=== PATIENT | female | born 1995 | race African-American/Black ===

== ENCOUNTER 2016-11-19 09:00 | Emergency (ER) | payer OTHER ==
[2016-11-19 09:23] VITALS: TEMP 97.5; BMI 21.4
--- NOTE | 2016-11-19 09:29 | PDOC ---
History of Present Illness <Amada Armando - Last Filed: 11/19/16 11:16> <Ok Torres - Last Filed: 11/19/16 11:35> - General History Source: Patient Exam Limitations: No Limitations - History of Present Illness Initial Comments: 11/19/16 10:10 The patient is a 21 year old female [id number], with no past medical history and is 13 weeks (LMP August 21), who presents to the ED with five days of worsening vaginal bleeding.The patient states that the bleeding started out light and became heavier as the days progressed. She states that she has been seeing heavy bright red blood with quarter sized clots. She denies any abdominal pain or cramping. On arrival to the ED, the patient was noted to be hypotensive. She denies any recent illness, fever, chills, nausea, vomiting, diarrhea, cough, SOB, chest pain, or urinary symptoms. She denies taking any medications. DIVINITY TEACHER: Bisi Mcintosh <Clarissa Ortega - Last Filed: 11/19/16 11:46> - General Chief Complaint: Vaginal Bleeding Stated Complaint: VAGINAL BLEEDING Time Seen by Provider: 11/19/16 09:25 Past History <Amada Armando - Last Filed: 11/19/16 11:16> - Past Medical History Other medical history: none - Psycho/Social/Smoking Cessation Hx Anxiety: No Suicidal Ideation: No Smoking History: Never smoked Have you smoked in the past 12 months: No Information on smoking cessation initiated: No Hx Alcohol Use: No Drug/Substance Use Hx: No Substance Use Type: None <Ok Torres - Last Filed: 11/19/16 11:35> <Clarissa Ortega - Last Filed: 11/19/16 11:46> - Past Medical History Allergies/Adverse Reactions: Allergies Allergy/AdvReac Type Severity Reaction Status Date / Time No Known Allergies Allergy Verified 11/19/16 09:10 Home Medications: Ambulatory Orders NK [No Known Home Medication] 11/19/16 Review of Systems - Review of Systems Able to Perform ROS?: Yes Comments:: 11/19/16 10:10 GENERAL/CONSTITUTIONAL: No fever or chills. No weakness. HEAD, EYES, EARS, NOSE AND THROAT: No change in vision. No ear pain or discharge. No sore throat. CARDIOVASCULAR: No chest pain or shortness of breath. RESPIRATORY: No cough, wheezing, or hemoptysis. GASTROINTESTINAL: No nausea, vomiting, diarrhea or constipation. GENITOURINARY: Present: vaginal bleeding with clots No dysuria, frequency, or change in urination. MUSCULOSKELETAL: No joint or muscle swelling or pain. No neck or back pain. SKIN: No rash NEUROLOGIC: No headache, vertigo, loss of consciousness, or change in strength/ sensation. ENDOCRINE: No increased thirst. No abnormal weight change. HEMATOLOGIC/LYMPHATIC: No anemia, easy bleeding, or history of blood clots. ALLERGIC/IMMUNOLOGIC: No hives or skin allergy. All Other Systems: Reviewed and Negative <Clarissa Ortega - Last Filed: 11/19/16 11:46> *Physical Exam - Vital Signs Last Vital Signs Temp Pulse Resp BP Pulse Ox 97.5 F L 81 18 107/68 100 11/19/16 09:23 11/19/16 10:19 11/19/16 10:19 11/19/16 10:19 11/19/16 10:19 <Amada Armando - Last Filed: 11/19/16 11:16> - Vital Signs Last Vital Signs Temp Pulse Resp BP Pulse Ox 97.5 F L 105 H 18 93/35 100 11/19/16 09:23 11/19/16 09:11 11/19/16 09:11 11/19/16 09:11 11/19/16 09:11 <Ok Torres - Last Filed: 11/19/16 11:35> - Vital Signs Last Vital Signs Temp Pulse Resp BP Pulse Ox 97.5 F L 105 H 18 93/35 100 11/19/16 09:23 11/19/16 09:11 11/19/16 09:11 11/19/16 09:11 11/19/16 09:11 - Physical Exam Comments: 11/19/16 10:17 GENERAL: Awake, alert, and fully oriented, in no acute distress HEAD: No signs of trauma EYES: PERRLA, EOMI, sclera anicteric, conjunctiva clear ENT: Auricles normal inspection, hearing grossly normal, nares patent, oropharynx clear without exudates. Moist mucosa NECK: Normal ROM, supple, no lymphadenopathy, JVD, or masses LUNGS: Breath sounds equal, clear to auscultation bilaterally. No wheezes, and no crackles HEART: Regular rate and rhythm, normal S1 and S2, no murmurs, rubs or gallops ABDOMEN: Soft, nontender, normoactive bowel sounds. No guarding, no rebound. No masses PELVIC: Large clot in vaginal vault, cervix closed, no adnexal fullness or tenderness, no pain with cervical motion EXTREMITIES: Normal range of motion, no edema. No clubbing or cyanosis. No cords, erythema, or tenderness NEUROLOGICAL: Cranial nerves II through XII grossly intact. Normal speech, normal gait SKIN: Warm, Dry, normal turgor, no rashes or lesions noted. <Clarissa Ortega - Last Filed: 11/19/16 11:46> ED Treatment Course - LABORATORY CBC & Chemistry Diagram: 11/19/16 09:42 11/19/16 09:42 - ADDITIONAL ORDERS Additional order review: Laboratory Results 11/19/16 11/19/16 09:42 09:20 Sodium 138 Potassium 3.5 Chloride 104 Carbon Dioxide 26 Anion Gap 8 BUN 6 L Creatinine 0.7 Creat Clearance w eGFR > 60 Random Glucose 145 H Calcium 8.6 Total Bilirubin 0.5 AST 16 ALT 17 Alkaline Phosphatase 53 Total Protein 7.1 Albumin 3.6 Blood Type AB POSITIVE Antibody Screen Negative 11/19/16 09:42 RBC 3.74 MCV 85.5 MCHC 33.2 RDW 14.3 MPV 7.6 Neutrophils % 80.2 Lymphocytes % 13.6 Monocytes % 4.9 Eosinophils % 1.0 Basophils % 0.3 <Amada Armando - Last Filed: 11/19/16 11:16> - LABORATORY CBC & Chemistry Diagram: 11/19/16 09:42 11/19/16 09:42 <Ok Torres - Last Filed: 11/19/16 11:35> - LABORATORY CBC & Chemistry Diagram: 11/19/16 09:42 11/19/16 09:42 - ADDITIONAL ORDERS Additional order review: 11/19/16 09:42 RBC 3.74 MCV 85.5 MCHC 33.2 RDW 14.3 MPV 7.6 Neutrophils % 80.2 Lymphocytes % 13.6 Monocytes % 4.9 Eosinophils % 1.0 Basophils % 0.3 <Clarissa Ortega - Last Filed: 11/19/16 11:46> Medical Decision Making - Medical Decision Making 11/19/16 11:16 focused ED ultrasound transabdominal OB : indication vaginal bleeding r/o free fluid, ectopic uterus scanned in two planes. no visualized gestational sac, no free fluid. no adnexal massess. RUQ no free fluid. . impression: empty uterus, recommend TVUS . dave/ beti/ pat <Amada Armando - Last Filed: 11/19/16 11:16> - Medical Decision Making 11/19/16 11:45 Transvaginal Ultrasound as reviewed by Dr. Quiñones reports findings consistent with residual blood and echogenic debris within the endometrial cavity s/p spontaneous . <Clarissa Ortega - Last Filed: 11/19/16 11:46> *DC/Admit/Observation/Transfer <Amada Armando - Last Filed: 11/19/16 11:16> - Discharge Dispostion Admit: No - Attestations Physician Attestion: 11/19/16 09:29 I, Dr. Ok Torres, attest that this document has been prepared under my direction and personally reviewed by me in its entirety. I further attest, that it accurately reflects all work, treatment, procedures and medical decision -making performed by me. <Ok Torres - Last Filed: 11/19/16 11:35> - Attestations Scribe Attestion: 11/19/16 10:18 Documentation prepared by Clarissa Ortega, acting as senior medical transcriptionist for Ok Torres DO. <Clarissa Ortega - Last Filed: 11/19/16 11:46> Diagnosis at time of Disposition: Inevitable , Complete - Referrals Referrals: STAFF,NOT ON [Primary Care Provider] - - Patient Instructions Printed Discharge Instructions: DI for Threatened Additional Instructions: Kajal Renae this happened.... but it is most likely that you completed this miscarrage. You need to be checked with blood work and another ultrasound on sunday. See your OB doctor for this..... if you can not get into see them, return here to the ED for repeat blood work, exam, and ultrasound.
[2016-11-19 09:58] LABS: BASOPHIL 0.3 % (0-2.0); MCH 28.4 pg (25.7-33.7); MCHC 33.2 g/dl (32.0-36.0); MEAN CELL VOLUME 85.5 fl (80-96); MEAN PLT VOLUME 7.6 fl (7.5-11.1); NEUTROPHILS 80.2 % (42.8-82.8); PLATELET COUNT 316 K/MM3 (134-434); RDW 14.3 % (11.6-15.6); WHITE BLOOD COUNT 14.3 K/mm3 (4.0-10.0)
[2016-11-19 10:19] VITALS: PULSE 81
[2016-11-19 10:21] LABS: ALBUMIN 3.6 g/dl (3.4-5.0); ANION GAP 8 (8-16); CALCIUM 8.6 mg/dL (8.5-10.1); CO2 26 mmol/L (21-32); GLUCOSE,RANDOM 145 mg/dL (74-106); SGOT/AST 16 U/L (15-37); SGPT/ALT 17 U/L (12-78)
[2016-11-19 10:24] LABS: ALK PHOS 53 U/L (45-117); BILIRUBIN,TOTAL 0.5 mg/dL (0.2-1.0); CREATININE 0.7 mg/dL (0.55-1.02); TOT PROT 7.1 g/dl (6.4-8.2)
[2016-11-19 11:59] VITALS: BP 98/48
== END 2016-11-19 12:00 | disposition home or self-care (01) ==
LOC: JER 09:00
DX: O03.9 Complete or unspecified spontaneous abortion without complication (principal); Z3A.12 12 weeks gestation of pregnancy
CPT/HCPCS: 36415; 76817-TC; 80053; 84702; 85025; 86850; 86900; 86901; 99283-25